=== PATIENT | female | born 2000 | race Caucasian/White ===

== ENCOUNTER 2021-04-22 17:00 | Emergency (ER) | payer OTHER ==
[2021-04-22 17:40] VITALS: BP 136/74; PULSE 64; TEMP 98.9; BMI 19.8
[2021-04-22] MEDS ORDERED: DEXAMETHASONE LIQUID 0.5 MG/5 ML PO ONE (17:51)
[2021-04-22] MEDS ORDERED: DEXAMETHASONE SOD PHOSPHATE 10 MG/1 ML VIAL ONE (17:52)
== END 2021-04-22 18:08 | disposition home or self-care (01) ==
LOC: JER 17:00
DX: J02.9 Acute pharyngitis, unspecified (principal)
CPT/HCPCS: 87880; 99283-25

== ENCOUNTER 2022-02-16 15:32 | Emergency (ER) | payer OTHER ==
[2022-02-16 15:44] VITALS: BP 120/80; PULSE 75; TEMP 98.3; BMI 24.5
== END 2022-02-16 19:30 | disposition home or self-care (01) ==
LOC: JERFT 15:32
DX: S93.602A Unspecified sprain of left foot, initial encounter (principal)
CPT/HCPCS: 73630-TC-LT; 99284-25